=== PATIENT | female | born 1975 | race Caucasian/White ===

== ENCOUNTER 2017-08-25 09:48 | Inpatient (IN) | payer MEDICAID, OTHER ==
[~2017-08-25] VITALS: Ht 167.6 cm; Wt 78.3 kg
[2017-08-25] MEDS ORDERED: CefTRIAXone 2gm/NS 100ml IVPB 100 ML IV ONE (10:40)
[2017-08-25] MEDS ORDERED: normal saline 1000ML IV soln IV ONE (10:40)
[2017-08-25] MEDS ORDERED: clindamycin 600mg/D5W 50ml 50 ML IV ONE (11:20)
[2017-08-25 11:30] LABS: BASOPHILS % (AUTO) 0.3 % (0-1); EOSINOPHILS % (AUTO) 0 % (0-6); HEMATOCRIT 33.5 % (35.0-45.0); HEMOGLOBIN 11.8 g/dl (12.0-16.0); LYMPHOCYTES # (AUTO) 0.3 X10'3 (1.1-4.8); LYMPHOCYTES % (AUTO) 4.1 % (21-51); MEAN CORPUSCULAR HEMOGLOBIN 31.3 PG (27.0-31.0); MEAN CORPUSCULAR HGB CONC 35.3 % (33.0-36.5); MEAN CORPUSCULAR VOLUME 88.7 FL (78-98); MEAN PLATELET VOLUME 7.3 FL (7.4-10.4); MONOCYTES # (AUTO) 0.2 X10'3 (0-0.9); MONOCYTES % (AUTO) 3.4 % (2-12); NEUTROPHILS # (AUTO) 6.1 X10'3 (1.8-7.7); NEUTROPHILS % (AUTO) 92.2 % (42-75); PLATELET COUNT 196 X10'3 (140-440); RED BLOOD COUNT 3.77 X10'6 (4.20-5.60); RED CELL DISTRIBUTION WIDTH 14.4 % (11.5-14.5); WHITE BLOOD COUNT 6.6 X10'3 (4.5-11.0)
[2017-08-25 11:38] LABS: PARTIAL THROMBOPLASTIN TIME 26 SECONDS (22-32); PROTHROMBIN TIME 10.2 SECONDS (9.0-12.0)
[2017-08-25 11:42] LABS: ALANINE AMINOTRANSFERASE 33 U/L (12-78); ALBUMIN 3.1 G/DL (3.4-5.0); ALKALINE PHOSPHATASE 61 IU/L (46-116); ANION GAP 8 (8-16); ASPARTATE AMINO TRANSFERASE 24 U/L (10-37); BILIRUBIN,TOTAL 0.9 MG/DL (0.1-1.0); BLOOD UREA NITROGEN 8 MG/DL (7-18); BUN/CREATININE RATIO 11.9 (6.6-38.0); CALCIUM 7.6 MG/DL (8.5-10.1); CHLORIDE 105 MMOL/L (99-107); CREATININE 0.67 MG/DL (0.40-0.90); GLUCOSE 102 MG/DL (70-104); SODIUM 138 MMOL/L (135-145); TOTAL CARBON DIOXIDE 25.5 MMOL/L (24-32); TOTAL PROTEIN 6.1 G/DL (6.4-8.2); eGFR > 90 ML/MIN
[2017-08-25] MEDS ORDERED: acetaminophen 325mg tablet PO ONE (12:30)
[2017-08-25] MEDS ORDERED: morphine 4 MG/ML inj SYRINge IV ONE (12:30)
[2017-08-25] MEDS ORDERED: magnesium hydroxide 30ml (MOM) UD suspension PO PRN (13:10)
[2017-08-25] MEDS ORDERED: morphine 2 MG/ML inj. syringe IV PRN ×2 (13:10)
[2017-08-25] MEDS ORDERED: mag hydrox/Alum hydrox/simeth 30ml oral suspension PO PRN (13:10)
[2017-08-25] MEDS ORDERED: ondansetron/PF 4mg/2ml inj IV PRN (13:10)
[2017-08-25] MEDS ORDERED: acetaminophen 325mg tablet PO PRN (13:10)
[2017-08-25 13:44] LABS: CLARITY,URINE Clear (Clear); COLOR,URINE Yellow (Yellow); GLUCOSE, URINE Negative (Neg); KETONES,URINE Trace mg/dl (Neg); LEUKOCYTE ESTERASE ,URINE Negative (Neg); NITRITES, URINE Negative (Neg); OCCULT BLOOD,URINE Negative (Neg); PH,URINE 5.5 (4.8-8.0); PROTEIN,URINE Negative (Neg); UROBILINOGEN,URINE 0.2 E.U/dL (0.2-1.0)
[2017-08-25 13:52] LABS: UA COLLECTION TYPE CLN CATCH MIDSTREAM
[2017-08-25 13:57] LABS: URINE AMPHETAMINE SCREEN NEGATIVE (Neg); URINE BARBITUATE SCREEN NEGATIVE (Neg); URINE BENZODIAZEPINES SCREEN NEGATIVE (Neg); URINE CANNABINOID SCREEN NEGATIVE (Neg); URINE COCAINE SCREEN NEGATIVE (Neg); URINE METHADONE SCREEN NEGATIVE (Neg); URINE OPIATE SCREEN POSITIVE (Neg); URINE PHENCYCLIDINE SCREEN NEGATIVE (Neg)
[2017-08-25] MEDS: normal saline 1000ml 1,000 ML IV SCH ×2 (14:18→23:06)
[2017-08-25] MEDS: ampicill/sulbac 1.5gm/NS 100ml 100 ML IV SCH ×2 (14:18→20:47)
[2017-08-25] MEDS: HYDROcodone/acetaminophen 5mg/325mg tablet PO PRN ×2 (15:10→20:13)
[2017-08-25 15:22] LABS: HIV ANTIBODY 1&2 RAPID NON-REACTIVE (Neg)
[2017-08-25] MEDS ORDERED: NO HOME MEDS (16:42)
[2017-08-25] MEDS ORDERED: pneumococcal 23-VAL P-sac vacc 25 mcg/0.5ml vial IMVAC ONE (17:40)
[2017-08-25 19:00] VITALS: BP 111/59
[2017-08-25] MEDS ORDERED: morphine 4 MG/ML inj SYRINge IV PRN (21:25)
[2017-08-25] MEDS: morphine 4 MG/ML inj SYRINge IV PRN (21:53)
[2017-08-26] VITALS: BP 107/68
[2017-08-26] MEDS: ampicill/sulbac 1.5gm/NS 100ml 100 ML IV SCH ×2 (02:19→08:59)
[2017-08-26] MEDS: morphine 4 MG/ML inj SYRINge IV PRN ×4 (02:30→19:47)
[2017-08-26] MEDS: normal saline 1000ml 1,000 ML IV SCH ×2 (02:32→14:19)
[2017-08-26 05:55] LABS: BASOPHILS % (AUTO) 0.4 % (0-1); EOSINOPHILS % (AUTO) 0 % (0-6); HEMATOCRIT 34.1 % (35.0-45.0); HEMOGLOBIN 12.1 g/dl (12.0-16.0); LYMPHOCYTES # (AUTO) 0.5 X10'3 (1.1-4.8); LYMPHOCYTES % (AUTO) 8.8 % (21-51); MEAN CORPUSCULAR HEMOGLOBIN 31.9 PG (27.0-31.0); MEAN CORPUSCULAR HGB CONC 35.5 % (33.0-36.5); MEAN CORPUSCULAR VOLUME 89.8 FL (78-98); MEAN PLATELET VOLUME 7.6 FL (7.4-10.4); MONOCYTES # (AUTO) 0.3 X10'3 (0-0.9); MONOCYTES % (AUTO) 5.6 % (2-12); NEUTROPHILS # (AUTO) 4.7 X10'3 (1.8-7.7); NEUTROPHILS % (AUTO) 85.2 % (42-75); PLATELET COUNT 187 X10'3 (140-440); RED CELL DISTRIBUTION WIDTH 14.2 % (11.5-14.5); WHITE BLOOD COUNT 5.5 X10'3 (4.5-11.0)
[2017-08-26] MEDS: HYDROcodone/acetaminophen 5mg/325mg tablet PO PRN ×2 (06:02→16:51)
[2017-08-26 06:11] LABS: ANION GAP 8 (8-16); BLOOD UREA NITROGEN 4 MG/DL (7-18); BUN/CREATININE RATIO 5.7 (6.6-38.0); CALCIUM 8.2 MG/DL (8.5-10.1); CHLORIDE 105 MMOL/L (99-107); GLUCOSE 155 MG/DL (70-104); POTASSIUM 3.8 MMOL/L (3.5-5.1); SODIUM 139 MMOL/L (135-145); TOTAL CARBON DIOXIDE 25.9 MMOL/L (24-32); eGFR > 90 ML/MIN
[2017-08-26 07:00] VITALS: BP 113/62
[2017-08-26 11:00] VITALS: BP 122/69
[2017-08-26] MEDS: ampicillin/sulbac 3gm/NS 100ml 100 ML IV SCH ×2 (14:52→19:47)
[2017-08-26] MEDS: lactobacillus rhamnosus 10,000 MMU CELLS/CAPSULE PO SCH (16:51)
[2017-08-26 19:00] VITALS: BP 108/66
[2017-08-27] VITALS: BP 122/77
[2017-08-27] MEDS: morphine 4 MG/ML inj SYRINge IV PRN (00:15)
[2017-08-27] MEDS: HYDROcodone/acetaminophen 5mg/325mg tablet PO PRN ×3 (01:23→11:34)
[2017-08-27] MEDS: ampicillin/sulbac 3gm/NS 100ml 100 ML IV SCH ×2 (02:05→08:38)
[2017-08-27] MEDS: normal saline 1000ml 1,000 ML IV SCH (05:06)
[2017-08-27 05:53] LABS: BASOPHILS % (AUTO) 0.5 % (0-1); EOSINOPHILS # (AUTO) 0.1 X10'3 (0-0.9); EOSINOPHILS % (AUTO) 2.8 % (0-6); HEMATOCRIT 31.6 % (35.0-45.0); HEMOGLOBIN 11.2 g/dl (12.0-16.0); LYMPHOCYTES # (AUTO) 1.4 X10'3 (1.1-4.8); LYMPHOCYTES % (AUTO) 37.1 % (21-51); MEAN CORPUSCULAR HEMOGLOBIN 31.5 PG (27.0-31.0); MEAN CORPUSCULAR HGB CONC 35.4 % (33.0-36.5); MEAN CORPUSCULAR VOLUME 88.9 FL (78-98); MEAN PLATELET VOLUME 7.3 FL (7.4-10.4); MONOCYTES # (AUTO) 0.6 X10'3 (0-0.9); MONOCYTES % (AUTO) 15.6 % (2-12); NEUTROPHILS # (AUTO) 1.7 X10'3 (1.8-7.7); PLATELET COUNT 174 X10'3 (140-440); RED BLOOD COUNT 3.55 X10'6 (4.20-5.60); RED CELL DISTRIBUTION WIDTH 14.1 % (11.5-14.5); WHITE BLOOD COUNT 3.8 X10'3 (4.5-11.0)
[2017-08-27 06:13] LABS: ALBUMIN 2.7 G/DL (3.4-5.0); ANION GAP 9 (8-16); BLOOD UREA NITROGEN 6 MG/DL (7-18); BUN/CREATININE RATIO 10.7 (6.6-38.0); CALCIUM 8.3 MG/DL (8.5-10.1); CHLORIDE 108 MMOL/L (99-107); CREATININE 0.56 MG/DL (0.40-0.90); GLUCOSE 120 MG/DL (70-104); POTASSIUM 3.6 MMOL/L (3.5-5.1); SODIUM 143 MMOL/L (135-145); TOTAL CARBON DIOXIDE 26.4 MMOL/L (24-32); eGFR > 90 ML/MIN
[2017-08-27 06:54] VITALS: BP 120/71
[2017-08-27] MEDS: lactobacillus rhamnosus 10,000 MMU CELLS/CAPSULE PO SCH (08:38)
[2017-08-27] MEDS ORDERED: iohexol 300mg/ml 100ml inj. ONE (11:44)
[2017-08-27] MEDS ORDERED: ACET-2119 PO (13:31)
[2017-08-27] MEDS ORDERED: AMOX-580 PO (13:31)
[2017-08-27] MEDS ORDERED: NAPR-1166 PO (13:31)
== END 2017-08-27 14:30 | disposition home or self-care (01) | DRG 872 ==
LOC: ER 09:48 → ED HOLD 13:06 → MED 3N 18:30
PROVIDERS: ADMIT Family Medicine; ATTEND Family Medicine
PROC: BN251ZZ Computerized Tomography (CT Scan) of Facial Bones using Low Osmolar Contrast (ICD-10-PCS; principal; 2017-08-27)
DX: A41.9 Sepsis, unspecified organism (principal); K04.7 Periapical abscess without sinus
CPT/HCPCS: 36415; 70486; 70487; 80048; 80053; 80305; 81003; 83605; 84145; 85025; 85610; 85730; 86703; 87040; 87070; 87502; 87503; 90732; 93005; 93306; 96361; 96365; 96375; 99285; J0295; J0696; J2270; J2405; J3490; J7030; Q9967

== ENCOUNTER 2018-01-03 17:48 | Emergency (ER) | payer MEDICAID ==
[~2018-01-03] VITALS: Ht 167.6 cm; Wt 68.2 kg
[~2018-01-03 17:48] MED LIST: CLIN300C85 PO; NAPR-1166 PO
[2018-01-03] MEDS ORDERED: HYDROcodone/acetaminophen 10/325mg tab PO ONE (20:10)
[2018-01-03] MEDS ORDERED: iohexol 300mg/ml 100ml inj. ONE (20:43)
[2018-01-03 20:54] LABS: BASOPHILS % (AUTO) 0.4 % (0-1); EOSINOPHILS # (AUTO) 0.1 X10'3 (0-0.9); EOSINOPHILS % (AUTO) 0.6 % (0-6); HEMOGLOBIN 14.2 g/dl (12.0-16.0); LYMPHOCYTES # (AUTO) 1.5 X10'3 (1.1-4.8); LYMPHOCYTES % (AUTO) 18.7 % (21-51); MEAN CORPUSCULAR HEMOGLOBIN 30.8 PG (27.0-31.0); MEAN CORPUSCULAR HGB CONC 34.7 % (33.0-36.5); MEAN CORPUSCULAR VOLUME 88.8 FL (78-98); MEAN PLATELET VOLUME 7.9 FL (7.4-10.4); MONOCYTES # (AUTO) 0.7 X10'3 (0-0.9); MONOCYTES % (AUTO) 8.6 % (2-12); NEUTROPHILS # (AUTO) 5.8 X10'3 (1.8-7.7); NEUTROPHILS % (AUTO) 71.7 % (42-75); PLATELET COUNT 259 X10'3 (140-440); RED BLOOD COUNT 4.61 X10'6 (4.20-5.60); RED CELL DISTRIBUTION WIDTH 12.9 % (11.5-14.5); WHITE BLOOD COUNT 8.1 X10'3 (4.5-11.0)
[2018-01-03 21:07] LABS: ALANINE AMINOTRANSFERASE 18 U/L (12-78); ALBUMIN 3.7 G/DL (3.4-5.0); ALBUMIN/GLOBULIN RATIO 1.1 (1.1-1.5); ALKALINE PHOSPHATASE 60 IU/L (46-116); ANION GAP 6 (8-16); ASPARTATE AMINO TRANSFERASE 12 U/L (10-37); BILIRUBIN,TOTAL 1.4 MG/DL (0.1-1.0); BLOOD UREA NITROGEN 9 MG/DL (7-18); BUN/CREATININE RATIO 14.3 (6.6-38.0); CALCIUM 8.8 MG/DL (8.5-10.1); CHLORIDE 103 MMOL/L (99-107); CREATININE 0.63 MG/DL (0.40-0.90); GLUCOSE 101 MG/DL (70-104); POTASSIUM 3.5 MMOL/L (3.5-5.1); SODIUM 141 MMOL/L (135-145); TOTAL CARBON DIOXIDE 32.5 MMOL/L (24-32); TOTAL PROTEIN 7.2 G/DL (6.4-8.2); eGFR > 90 ML/MIN
[2018-01-03] MEDS ORDERED: HYDR-565 PO (23:22)
[2018-01-03 23:30] VITALS: BP 103/79
== END 2018-01-03 23:32 | disposition home or self-care (01) ==
LOC: ER 17:49
DX: K08.89 Other specified disorders of teeth and supporting structures (principal); Z79.899 Other long term (current) drug therapy
CPT/HCPCS: 36415; 70487; 80053; 85025; 99285; J7030; Q9967

== ENCOUNTER 2021-04-27 18:36 | Inpatient (IN) | payer MEDICAID ==
[~2021-04-27] VITALS: Ht 170.2 cm; Wt 59.8 kg
[~2021-04-27 18:36] MED LIST changes: +CLIN-97 PO; -CLIN300C85 PO
[2021-04-27 19:25] LABS: URINE HCG NEGATIVE (NEG)
[2021-04-27 19:30] LABS: URINE AMPHETAMINE SCREEN NEGATIVE (Neg); URINE BARBITUATE SCREEN NEGATIVE (Neg); URINE BENZODIAZEPINES SCREEN NEGATIVE (Neg); URINE CANNABINOID SCREEN NEGATIVE (Neg); URINE COCAINE SCREEN NEGATIVE (Neg); URINE METHADONE SCREEN POSITIVE (Neg); URINE OPIATE SCREEN NEGATIVE (Neg); URINE PHENCYCLIDINE SCREEN NEGATIVE (Neg)
[2021-04-27 19:40] LABS: BASOPHILS % (AUTO) 0.3 % (0-1); EOSINOPHILS % (AUTO) 0.1 % (0-6); HEMATOCRIT 38.2 % (35.0-45.0); HEMOGLOBIN 13.7 g/dl (12.0-16.0); LYMPHOCYTES # (AUTO) 1.5 X10'3 (1.1-4.8); LYMPHOCYTES % (AUTO) 21.6 % (21-51); MEAN CORPUSCULAR HEMOGLOBIN 31.4 PG (27.0-31.0); MEAN CORPUSCULAR HGB CONC 35.8 g/dL (33.0-36.5); MEAN CORPUSCULAR VOLUME 87.8 FL (78-98); MEAN PLATELET VOLUME 7.5 FL (7.4-10.4); MONOCYTES # (AUTO) 0.8 X10'3 (0-0.9); MONOCYTES % (AUTO) 10.9 % (2-12); NEUTROPHILS # (AUTO) 4.7 X10'3 (1.8-7.7); NEUTROPHILS % (AUTO) 67.1 % (42-75); PLATELET COUNT 344 X10'3 (140-440); RED BLOOD COUNT 4.36 X10'6 (4.20-5.60); RED CELL DISTRIBUTION WIDTH 12.5 % (11.5-14.5)
[2021-04-27 19:52] LABS: ALANINE AMINOTRANSFERASE 29 U/L (12-78); ALBUMIN 4.2 G/DL (3.4-5.0); ALBUMIN/GLOBULIN RATIO 1.2 (1.1-1.5); ALKALINE PHOSPHATASE 47 IU/L (46-116); ANION GAP 11 (8-16); ASPARTATE AMINO TRANSFERASE 25 U/L (10-37); BILIRUBIN,TOTAL 1.6 MG/DL (0.1-1.0); BLOOD UREA NITROGEN 5 MG/DL (7-18); CHLORIDE 99 MMOL/L (99-107); CREATININE 0.71 MG/DL (0.40-0.90); GLUCOSE 108 MG/DL (70-104); POTASSIUM 3.2 MMOL/L (3.5-5.1); SODIUM 140 MMOL/L (135-145); TOTAL CARBON DIOXIDE 29.8 MMOL/L (24-32); TOTAL PROTEIN 7.8 G/DL (6.4-8.2); eGFR 89 ML/MIN
[2021-04-27 20:01] LABS: ETHANOL < 0.010 GM/DL (0.0-0.010)
[2021-04-27] MEDS ORDERED: normal saline 1000ML IV soln IVB ONE (20:05)
--- NOTE | 2021-04-27 20:51 | NUR ---
pt refused IV and IVF. md monzon notified
[2021-04-27] MEDS ORDERED: BUPR1FIL3 (22:19)
--- NOTE | 2021-04-27 23:35 | NUR ---
The patient moved to bed 20 in the ER overflow.
--- NOTE | 2021-04-27 23:36 | NUR ---
PACKET SENT TO [facility]
[2021-04-27] MEDS ORDERED: METH-603 PO (23:42)
--- NOTE | 2021-04-28 01:33 | NUR ---
The patient is awake and resting on her bed
[2021-04-28] MEDS ORDERED: OLANZapine 5mg rapidly disint. tablet PO ONE (01:55)
--- NOTE | 2021-04-28 02:01 | NUR ---
The patient up and wandering around looking behind curtains. Appears watchful and afraid. She agreed to accept medication. Dr. Ugalde aware and orders received.
--- NOTE | 2021-04-28 03:13 | NUR ---
The patient up briefly to use the bathroom
--- NOTE | 2021-04-28 04:42 | NUR ---
The patient appears to be sleeping
[2021-04-28] MEDS ORDERED: LORazepam 2 mg/ml vial IM STA (04:49)
[2021-04-28] MEDS ORDERED: haloperidol lactate 5mg/ml inj IM STA (04:49)
[2021-04-28] MEDS ORDERED: diphenhydrAMINE 50 mg/ml inj IM STA (04:49)
--- NOTE | 2021-04-28 05:05 | NUR ---
The patient suddenly up out of bed and very frightened. She was disorganized and started running to the exits and obviously responding to internal stimuli and paranoid. She began to throw 100$ bills about the unit.
--- NOTE | 2021-04-28 06:30 | NUR ---
Patient laying supine and snoring. No distress observed. Continue to monitor.
--- NOTE | 2021-04-28 08:20 | NUR ---
Breakfast tray at bedside. Patient continues to sleep. No distress observed. Continue to monitor.
--- NOTE | 2021-04-28 08:58 | NUR ---
PT'S SISTER LAWRENCE CALLED TO CHECK ON PT, HER PHONE NUMBER IS [phone]
--- NOTE | 2021-04-28 09:16 | NUR ---
PT'S MAREN CALLED TO CHECK ON PT. HIS NAME IS ANDRWE CASTANEDA, HIS PHONE NUMBER IS [phone]
[2021-04-28 09:54] LABS: CLARITY,URINE SLIGHTLY CLOUDY (Clear); COLOR,URINE COLORLESS (Yellow); UA COLLECTION TYPE CLN CATCH MIDSTREAM
[2021-04-28 09:55] LABS: GLUCOSE, URINE NEGATIVE (Neg); KETONES,URINE 15 mg/dl (Neg); LEUKOCYTE ESTERASE ,URINE NEGATIVE (Neg); NITRITES, URINE NEGATIVE (Neg); OCCULT BLOOD,URINE SMALL (Neg); PROTEIN,URINE NEGATIVE (Neg); UROBILINOGEN,URINE 0.2 E.U/dL (0.2-1.0)
[2021-04-28 10:18] LABS: SQUAMOUS EPITHELIAL CELL,UR FEW /LPF (FEW)
[2021-04-28 10:19] LABS: BACTERIA,URINE FEW /HPF (Neg); RBC,URINE 0-2 /HPF (0-2); WBC,URINE 0-4 /HPF (0-4)
--- NOTE | 2021-04-28 11:26 | NUR ---
Note aleksandraone in EDM - 04/28/21 at 1128 by ORION Patient should be going home around noon. Eliel [facility], is not placing patient on a 5150. Patient is aware. Patient in reclining in bed. No distress observed. Continue to monitor.
--- NOTE | 2021-04-28 11:39 | NUR ---
Patient continues to sleep. Patient's methadone was due at 0800. Patient still sedated from B52 given around 0500 this morning. Continue to monitor.
[2021-04-28] MEDS: methadone 10mg tablet PO SCH (11:54)
--- NOTE | 2021-04-28 11:58 | NUR ---
Patient awoke and RN gave patient her Methadone. Patient took the medication slowly because she says it is usually liquid. RN asked patient if she new where she was was. Patient stated "[place]." Then patient asked RN "Are we on a boat?". RN explained that she was in the hospital at [facility]. Patient does not appear to remember any thing current. Patient then rolled over and went back to sleep. Continue to monitor.
--- NOTE | 2021-04-28 13:11 | NUR ---
Patient's lunch tray at side. Patient continues to sleep. No distress observed. Continue to monitor.
--- NOTE | 2021-04-28 13:47 | NUR ---
FRANCIS, Eliel, attempting to awaken patient. Patient awoke for a moment and then closed her eyes to go back asleep. [facility] unable to assess patient at this time. Continue to monitor.
--- NOTE | 2021-04-28 15:13 | NUR ---
RN awoke patient to give her water and asked patient if she needed to use the BR. RN gave patient her pitcher and she drank some water. Patient got up and walked to the BR after placing her socks on her feet. Continue to monitor.
--- NOTE | 2021-04-28 16:48 | NUR ---
Eliel BLANCO, speaking to patient. Patient is sitting up and talking and drinking her water. Continue to monitor.
--- NOTE | 2021-04-28 18:44 | NUR ---
The patient is up at the station and socializing with staff and peers. She is less hypervigilant. Currently is not requiring any redirection from staff.
--- NOTE | 2021-04-28 20:07 | NUR ---
Nurse to nurse with [facility] RN. The patient is resting on her bed. Discussed patient with JARROD Tate and HS medications ordered for tonight.
[2021-04-28] MEDS ORDERED: olanzapine 10mg tablet PO ONE (21:00)
--- NOTE | 2021-04-28 21:34 | NUR ---
The patient awakened and is more disorganized but reassured and she is now laying back on her bed.
--- NOTE | 2021-04-28 22:53 | NUR ---
The patient has been accepted at [facility] for an AM transfer
--- NOTE | 2021-04-29 01:39 | NUR ---
The patient appears to be sleeping
--- NOTE | 2021-04-29 03:48 | NUR ---
The patient appears to be sleeping
--- NOTE | 2021-04-29 04:49 | NUR ---
The patient appears to be sleeping
--- NOTE | 2021-04-29 06:22 | NUR ---
The patient appears to be sleeping
[2021-04-29] MEDS: methadone 10mg tablet PO SCH (08:00)
--- NOTE | 2021-04-29 08:11 | NUR ---
The patient is sitting up and eating her dinner
[2021-04-29] MEDS ORDERED: magnesium hydroxide 30ml (MOM) UD suspension PO PRN (09:25)
[2021-04-29] MEDS ORDERED: traZODone 50mg tablet PO PRN (09:25)
[2021-04-29] MEDS ORDERED: NICOTINE POLACRILEX 2 MG LOZENGE BC PRN (09:25)
[2021-04-29] MEDS ORDERED: mag hydrox/Alum hydrox/simeth 30ml oral suspension PO PRN (09:25)
[2021-04-29] MEDS ORDERED: loperamide 2mg capsule PO PRN (09:25)
[2021-04-29] MEDS ORDERED: acetaminophen 325mg tablet PO PRN (09:25)
[2021-04-29 09:47] VITALS: BP 130/79
--- NOTE | 2021-04-29 10:58 | NUR ---
Admission note: Pt admitted today on a 5150 for Gravely disabled at 0911 from our ER escorted by security. Pt exhibits paranoia, delusional thoughts, fear of people harming her and her family, not sleeping the past 48 hours per family. Pt has history of substance abuse and on Methadone. Pt fully covid vaccinated. Pt cooperative with admission process.
[2021-04-29 19:09] VITALS: BP 125/71
[2021-04-29] MEDS: acetaminophen 325mg tablet PO PRN (19:26)
[2021-04-29] MEDS: LORazepam 1 MG tablet PO PRN (20:39)
[2021-04-29] MEDS: olanzapine 10mg tablet PO PRN (22:41)
--- NOTE | 2021-04-30 03:46 | NUR ---
Nursing Progress Note: Legal hold: 5150 Client on involuntary status for GD. Report received from FELICIA Blancas with use of SBAR. Pt admitted today on a 5150 for gravely disabled at 0911 from our ER escorted by security. Pt exhibits paranoia, delusional thoughts, and fear of people harming her and her family, not sleeping the past 48 hours per family. Pt has history of substance abuse and on Methadone. Pt fully covid vaccinated. Pt cooperative with admission process. Assessment What has happened this shift: Patient was found in room reading a book. Patient then came out of room franticly telling nurse she needs to get out of here. Patient does not understand why she is in here. Patient keeps stating she is not crazy and doesnt need to be here. She needs to get out of here its her daughters birthday tomorrow and she still needs to get her a gift. Nurse calms down patient and redirects her to her room. Patient started complaining of shoulder pain and was given PRN Tylenol. Patient spends some time in sitting room with other patients watching tv before returning back to bed. Patient gets up frustrated and complaining of inability to sleep patient is give PRN Zyprexa. Patient finally sleeps. S/I, H/I: Pt denies A/VH: Pt denies Sleep: see sleep hours ADL's: Independent Group attendance: yes Were meds taken: Yes Any med S/E: None noted or reported. Mental Status Exam Appearance: Slim, middle aged women wearing personal clothing Eye contact: Good. Behavior: Restless, impulsive, anxious, somewhat demanding and intrusive at times, paces the unit Speech: Clear, audible, somewhat rapid. Mood: Anxious Affect: Euthymic Thought process: obsessive Thought Content: Patient has to buy a birthday gift for daughter and has to get out. Cognition: A/O X 3 Insight: Poor Judgment: Poor Interventions PRN's used: Tylenol , Zyprexa Therapeutic interventions: 1:1 assessment, therapeutic communication, active listening, ensured contract for safety, provided clear and simple instructions, monitored behaviors and maintained clear boundaries; limit setting, redirection, distraction, reality orientation, and positive reinforcement, medication education/administration/monitoring, and maintained Q 15 minute safety checks. Restraints/seclusion/emergency medication: N/A Justification of Continued Inpatient Treatment: Patient continues to require a safe and therapeutic environment, medication adjustment/monitoring, and crisis intervention. Pt is being assisted with [employer] application.
[2021-04-30 07:38] VITALS: BP 120/57
[2021-04-30] MEDS: methadone 10mg tablet PO SCH (07:48)
[2021-04-30 09:41] LABS: CHOL/HDL RATIO 2.9 (0.00-4.99); CHOLESTEROL 180 MG/DL (0-200); HDL CHOLESTEROL 63 MG/DL (35-60); LDL CHOLESTEROL 94 MG/DL (50-100); TRIGLYCERIDES 57 MG/DL (20-135)
[2021-04-30 09:46] LABS: HEMOGLOBIN A1C 5.7 % (4.5-6.2)
--- NOTE | 2021-04-30 10:06 | NUR ---
Pt. attended group today. We talked about how to recognize when you are in a Co-dependent relationship. The Pts. did a Checklist about what symptoms of codependency they may have. We discussed seven ways to avoid codependency. This was Pts. first time in group as she just got to [facility]. Pt. engaged in the group well, she appeared tired as she would almost be falling asleep while listening to this Abattoir Supervisor or her peers. She engaged in the group well when asked to share. Her responses were appropriate and she was able engage with the informations well. Her thought process and thought content appeared WNL. She was friendly and open to this Abattoir Supervisor and her peers. Her demeanor was calm and pleasant to work with. She was able to identify the areas she needs to work on toward attaining healthier relationships. Ioana Liz, ABDIFATAH
--- NOTE | 2021-04-30 14:19 | NUR ---
We talked about Boundaries, the different kinds and how to communicate our boundaries to others. Each pt. did a written activity to help them identify a person/situation they struggle to set boundaries in. Pt. participated in the group today though she tends to zone out and look like she is falling asleep at times. She did the written activity but decline sharing in the group. Her thought content and thought process was WNL. Ioana Liz LCSW
[2021-04-30] MEDS ORDERED: potassium Cl 20 mEq SR tablet PO STA (14:25)
[2021-04-30 16:05] LABS: POTASSIUM 3.8 MMOL/L (3.5-5.1)
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
[2021-04-30 19:16] VITALS: BP 119/82
[2021-04-30] MEDS: LORazepam 1 MG tablet PO PRN (19:34)
--- NOTE | 2021-05-01 02:44 | NUR ---
Nursing Progress Note: Legal hold: 5150 Client on involuntary status for GD. Report received from FELICIA Blancas with use of SBAR. Pt admitted 04/29/21 from ER overflow on a 5150 for GD. Pt's boyfriend reported that pt had been acting strangely with paranoia, delusional thoughts, and fear of people harming her and her family, as well as not sleeping the past 48 hours per family. Pt has history of substance abuse and on Methadone. Pt cooperative with admission process. Assessment What has happened this shift: Patient appeared anxious and preoccupied with internal stimulant. Patient continues to ask when is she going home and that she does not need to be here. Patient was reassured by nurses multiple time that when it time for her to leave all of her belongings will be returned to her. Patient became argumentative with nurse about her money in the safe. Patient didn't believe nurse when she told her we did not have it here and that it is being kept locked up. Patient was given PRN Ativan. Patient spent some time in the community room playing cards and socializing with other patients. Patient returned to her room and fell asleep. Patient awoken an hour later and began going back and forth from her bed to wondering around the hallways. Patient also kept swaying back and forth in front of the charting room and when asked if she needed anything kept stating "no". Patient eventually returned to her room and went to sleep. S/I, H/I: Pt denies A/VH: Pt denies Sleep: See sleep assessment ADL's: Independent Group attendance: yes Were meds taken: Yes Any med S/E: none Mental Status Exam Appearance: Slim, middle aged women wearing personal clothing Eye contact: Good. Behavior: Pleasant, cooperative, may be minimizing symptoms. Speech: Clear, audible, repetitive. Mood: Anxious Affect: Full range. Thought process: Perseverative, has difficulty understanding mental health hold despite being educated repeatedly. Thought Content: She does not need to be here, she is worried about her kids, there is no such thing as an involuntary psych hold in [facility]. Cognition: A/O X 3, disoriented to situation/reality distortion, possible cognitive impairment, pt has difficulty processing and accepting information. Insight: Poor Judgment: Poor Interventions PRN's used: None Therapeutic interventions: 1:1 assessment, therapeutic communication, active listening, ensured contract for safety, medication education/administration/monitoring, provided clear and simple instructions, encouragement to attend groups, mental health hold education, behavior monitoring and intervention as needed; distraction, redirection, reality orientation, and positive reinforcement, , and maintained Q 15 minute safety checks. Restraints/seclusion/emergency medication: N/A Justification of Continued Inpatient Treatment: Patient continues to require a safe and therapeutic environment, medication adjustment/monitoring, and crisis intervention.
[2021-05-01] MEDS: olanzapine 10mg tablet PO PRN (04:17)
[2021-05-01 08:00] VITALS: BP 124/62
[2021-05-01] MEDS: methadone 10mg tablet PO SCH (09:02)
--- NOTE | 2021-05-01 16:39 | NUR ---
Anyn note: Anny called and states pt calls and does not remember with in 10 minutes. Sometimes she calls and threatens them and then forgets . Anny feels pt may have split personality.
--- NOTE | 2021-05-01 17:28 | NUR ---
Nursing Progress Note Legal hold: 5150 Client on involuntary status for GD. Report received from FELICIA Leija with use of SBAR. Why are they here: Pt admitted 04/29/21 from ER overflow on a 5150 for GD. Pt's boyfriend reported that pt had been acting strangely with paranoia, delusional thoughts, and fear of people harming her and her family, as well as not sleeping the past 48 hours per family. Pt has history of substance abuse and on Methadone. Pt cooperative with admission process. Assessment What has happened this shift: Pt observed on the floor pacing at the start of the shift. Pt was somewhat hesitant to take her medicine, Methadone 85mg; provided education and pt agreed to take it. Pt was hesitant due to at home she takes the pink liquid, this seems to be more. Pt perseverates on discharge. She asked this nurse all morning and into the early part of the afternoon, when can I go home. This nurse unable to redirect her. S/I, H/I: Pt denies A/VH: Pt denies Sleep: Pt up all shift ADL's: Independent Group attendance: yes Were meds taken: Yes Any med S/E: None noted or reported Mental Status Exam Appearance: Slim, middle aged women wearing personal clothing Eye contact: Good. Behavior: Perseverated; difficult redirecting her Speech: Clear, audible, repetitive. Mood: Anxious Affect: Full range. Thought process: Perseverative, has difficulty understanding current hold Thought Content: I just want to go home and see my kids. Cognition: A/O X 3 Insight: Poor Judgment: Poor Interventions PRN's used: None Therapeutic interventions: Provided 1:1 assessment with therapeutic communication and active listening, medication education/administration/monitoring, encouragement to attend groups, behavior monitoring and intervention as needed, and maintained Q 15 minute safety checks. Restraints/seclusion/emergency medication: N/A Justification of Continued Inpatient Treatment: Patient continues to require a safe and therapeutic environment, medication adjustment/monitoring, and crisis intervention.
[2021-05-01] MEDS: acetaminophen 325mg tablet PO PRN (18:39)
[2021-05-01 19:42] VITALS: BP 120/73
--- NOTE | 2021-05-02 02:45 | NUR ---
Nursing Progress Note: Legal hold: 5150 Client on involuntary status for GD. Report received from FELICIA Blancas with use of SBAR. Pt admitted 04/29/21 from ER overflow on a 5150 for GD. Pt's boyfriend reported that pt had been acting strangely with paranoia, delusional thoughts, and fear of people harming her and her family, as well as not sleeping the past 48 hours per family. Pt has history of substance abuse and on Methadone. Pt cooperative with admission process. Assessment What has happened this shift: patient spent most of the shift socializing with other patients and wondering around unit. Patient participated in snack time and then returned to room to read. Patient stated to nurse she was feeling anxious and wanted something to help her sleep. Patient was given PRN Zyprexa. Patient slept with no issues. S/I, H/I: Pt denies A/VH: Pt denies Sleep: See sleep assessment ADL's: Independent Group attendance: yes Were meds taken: Yes Any med S/E: none Mental Status Exam Appearance: Slim, middle aged women wearing personal clothing Eye contact: Good. Behavior: Pleasant, cooperative, may be minimizing symptoms. Speech: Clear, audible, repetitive. Mood: Anxious Affect: Full range. Thought process: Perseverative, has difficulty understanding mental health hold despite being educated repeatedly. Thought Content: She does not need to be here, she is worried about her kids, there is no such thing as an involuntary psych hold in [facility]. Cognition: A/O X 3, disoriented to situation/reality distortion, possible cognitive impairment, pt has difficulty processing and accepting information. Insight: Poor Judgment: Poor Interventions PRN's used: None Therapeutic interventions: 1:1 assessment, therapeutic communication, active listening, ensured contract for safety, medication education/administration/monitoring, provided clear and simple instructions, encouragement to attend groups, mental health hold education, behavior monitoring and intervention as needed; distraction, redirection, reality orientation, and positive reinforcement, , and maintained Q 15 minute safety checks. Restraints/seclusion/emergency medication: N/A Justification of Continued Inpatient Treatment: Patient continues to require a safe and therapeutic environment, medication adjustment/monitoring, and crisis intervention.
[2021-05-02 08:39] VITALS: BP 125/84
[2021-05-02] MEDS: methadone 10mg tablet PO SCH (08:48)
[2021-05-02] MEDS ORDERED: NICO-907 BC (11:02)
[2021-05-02] MEDS ORDERED: OLAN10TA73 PO (11:02)
--- NOTE | 2021-05-02 11:35 | NUR ---
DISCHARGE NOTE Pt discharged home with her children and . picked her up. Pt personal belongings inventoried and signed out by GHAZALA Becker. Pt left with a smile on her face. She agreed to take her mediaions as prescribed and to pick them up from her pharmacy on the way home. She prescribed nicotine lozenges and agreed to take them at home. During discharge pt did talk about vaping and did not want education to quit smoking or resources to help her when and if she decided to quit.
== END 2021-05-02 11:35 | disposition home or self-care (01) | DRG 756 ==
LOC: ER 18:37 → UNDOADMIN 04-28 22:40 → ADULT MH 04-28 22:40 → ED HOLD 04-28 22:40 → ADULT MH 04-29 09:25
PROVIDERS: ADMIT Psychiatry & Neurology Psychiatry; ATTEND Psychiatry & Neurology Psychiatry
DX: F99 Mental disorder, not otherwise specified (principal); F22 Delusional disorders; Z20.822 Contact with and (suspected) exposure to COVID-19; F31.9 Bipolar disorder, unspecified; J45.909 Unspecified asthma, uncomplicated; F17.210 Nicotine dependence, cigarettes, uncomplicated; G47.00 Insomnia, unspecified; F11.20 Opioid dependence, uncomplicated; F19.159 Other psychoactive substance abuse with psychoactive substance-induced psychotic disorder, unspecified; E11.9 Type 2 diabetes mellitus without complications; I10 Essential (primary) hypertension; Z98.891 History of uterine scar from previous surgery; Z79.2 Long term (current) use of antibiotics; Z79.899 Other long term (current) drug therapy; Z56.0 Unemployment, unspecified; Z71.89 Other specified counseling
CPT/HCPCS: 36415; 80053; 80061; 80305; 80320; 81001; 81025; 83036; 84132; 84443; 85025; 87081; 87635; 96372; 99285; C9803; G0378; J1200; J1630; J2060

== ENCOUNTER 2021-06-05 15:12 | Emergency (ER) | payer MEDICAID ==
[~2021-06-05] VITALS: Ht 167.6 cm; Wt 68.0 kg
[~2021-06-05 15:12] MED LIST changes: -CLIN-97 PO; +METH-603 PO; -NAPR-1166 PO; +NICO-907 BC; +OLAN10TA73 PO
[2021-06-05 16:07] LABS: HEMATOCRIT 37.5 % (35.0-45.0); MEAN PLATELET VOLUME 7.4 FL (7.4-10.4); WHITE BLOOD COUNT 7.6 X10'3 (4.5-11.0)
[2021-06-05 16:08] LABS: BASOPHILS % (AUTO) 0.4 % (0-1); EOSINOPHILS % (AUTO) 0.1 % (0-6); HEMOGLOBIN 13.3 g/dl (12.0-16.0); LYMPHOCYTES # (AUTO) 1.2 X10'3 (1.1-4.8); LYMPHOCYTES % (AUTO) 16.2 % (21-51); MEAN CORPUSCULAR HEMOGLOBIN 31.3 PG (27.0-31.0); MEAN CORPUSCULAR HGB CONC 35.5 g/dL (33.0-36.5); MEAN CORPUSCULAR VOLUME 88.1 FL (78-98); MONOCYTES # (AUTO) 0.8 X10'3 (0-0.9); MONOCYTES % (AUTO) 10.5 % (2-12); NEUTROPHILS # (AUTO) 5.5 X10'3 (1.8-7.7); NEUTROPHILS % (AUTO) 72.8 % (42-75); PLATELET COUNT 349 X10'3 (140-440); RED BLOOD COUNT 4.25 X10'6 (4.20-5.60); RED CELL DISTRIBUTION WIDTH 12.4 % (11.5-14.5)
[2021-06-05 16:18] LABS: ALANINE AMINOTRANSFERASE 37 U/L (12-78); ALBUMIN 4.3 G/DL (3.4-5.0); ALBUMIN/GLOBULIN RATIO 1.2 (1.1-1.5); ALKALINE PHOSPHATASE 50 IU/L (46-116); ANION GAP 11 (8-16); ASPARTATE AMINO TRANSFERASE 28 U/L (10-37); BILIRUBIN,TOTAL 1.3 MG/DL (0.1-1.0); BLOOD UREA NITROGEN 19 MG/DL (7-18); CALCIUM 8.9 MG/DL (8.5-10.1); CHLORIDE 100 MMOL/L (99-107); CREATININE 0.76 MG/DL (0.40-0.90); GLUCOSE 104 MG/DL (70-104); POTASSIUM 3.5 MMOL/L (3.5-5.1); SODIUM 139 MMOL/L (135-145); TOTAL CARBON DIOXIDE 28.4 MMOL/L (24-32); TOTAL PROTEIN 7.9 G/DL (6.4-8.2); eGFR 82 ML/MIN
[2021-06-05 16:33] LABS: ETHANOL < 0.010 GM/DL (0.0-0.010)
[2021-06-05] MEDS ORDERED: OLANZapine 5mg rapidly disint. tablet PO ONE (16:35)
--- NOTE | 2021-06-05 17:00 | NUR ---
Patient is having difficulty following commands. Patient appears to be responding to internal stimuli AEB patient scared and looking at the curtain yelling "No! No!". RN assisted patient in getting undressed and cleaned patient's perineal due to obvious stool. Patient wrapped shoulders in a warm blanket and patient got in bed. No distress observed at this time. Continue to monitor.
--- NOTE | 2021-06-05 17:10 | NUR ---
RN spoke with patient's "" (Fazal Mascorro, [phone]) who states patient started acting strange and they have children so he had to call the Door Technician's office to pick her up. States she has had 2 of these episodes. RN explained she is not sure what is going on with her and it is possibly a bad batch of drugs or possibly schizophrenia. RN explained sometimes we don't know what comes first the drugs or the schizophrenia. Patient states she is always sleepy when she does heroin and doesn't act like . He states she has been doing drugs since she was 15. Patient was acting manic and psychotic. verbalized understanding. All questions were answered.
[2021-06-05] MEDS ORDERED: methadone 10mg tablet PO ONE (17:20)
--- NOTE | 2021-06-05 17:55 | NUR ---
Patient sitting up awake. RN went to give patient her 8.5 tabs of Methadone and 5 mg Zyprexa. RN put 2 pills in patient's mouth and she didn't know what to do with it. RN gave her water and put the straw in her mouth and patient wouldn't put her lips around it to suck. RN took away the stray and gave patient a sip. Patient then appeared to understand. RN put the straw back in and patient took a couple pills at a time and drank the water. RN asked patient to open her mouth with each pass and patient did. Patient swallowed all the pill and zyprexa disolved in her mouth as it took her a while to understand. RN gave patient her first dose of methadone because she was in snf and had not had it for 3 days. Will start daily tomorrow. Continue to monitor.
[2021-06-05] MEDS ORDERED: LORazepam 2 mg/ml vial IM ONE ×2 (18:40→19:20)
[2021-06-05] MEDS ORDERED: diphenhydrAMINE 50 mg/ml inj IM ONE (18:40)
[2021-06-05] MEDS ORDERED: haloperidol lactate 5mg/ml inj IM ONE ×4 (18:40→20:00)
--- NOTE | 2021-06-05 18:40 | NUR ---
Patient has awoken from a short nap of approximately one hour per day RN. Patient is now screaming, she presents as very psychotic. Patient flails arms and also has voided in bed and defecated too. PA is consulted. Orders received for Ativan, Benadryl, and Haldol IM.
--- NOTE | 2021-06-05 19:12 | NUR ---
Patient has been given ativan 1mg, Benadryl 50 mg, and Haldol 5 mg IM. She remains irrational and uncooperative.
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
[2021-06-05] MEDS: OLANZapine 5mg rapidly disint. tablet PO SCH (20:00)
[2021-06-05] MEDS ORDERED: olanzapine 10mg tablet PO SCH (20:00)
--- NOTE | 2021-06-05 20:00 | NUR ---
pt asking for water, she drank 8 oz of water, no n/v
--- NOTE | 2021-06-05 20:06 | NUR ---
Patient is calming to some degree. She has been cleaned, a quick cath was done by female RN, an adult diaper was placed, cleen scrubs applied.
[2021-06-05 20:28] LABS: URINE HCG NEGATIVE (NEG)
[2021-06-05 20:30] LABS: CLARITY,URINE CLEAR (Clear); COLOR,URINE YELLOW (Yellow); GLUCOSE, URINE NEGATIVE (Neg); KETONES,URINE >=80 mg/dl (Neg); LEUKOCYTE ESTERASE ,URINE NEGATIVE (Neg); NITRITES, URINE NEGATIVE (Neg); OCCULT BLOOD,URINE TRACE-INTACT (Neg); PROTEIN,URINE 30 mg/dl (Neg); UROBILINOGEN,URINE 0.2 E.U/dL (0.2-1.0)
[2021-06-05 20:34] LABS: URINE AMPHETAMINE SCREEN NEGATIVE (Neg); URINE BARBITUATE SCREEN NEGATIVE (Neg); URINE BENZODIAZEPINES SCREEN NEGATIVE (Neg); URINE CANNABINOID SCREEN NEGATIVE (Neg); URINE COCAINE SCREEN NEGATIVE (Neg); URINE METHADONE SCREEN POSITIVE (Neg); URINE OPIATE SCREEN NEGATIVE (Neg); URINE PHENCYCLIDINE SCREEN NEGATIVE (Neg)
--- NOTE | 2021-06-05 20:37 | NUR ---
relieving RN for break, pt is sleeping quietly, light snoring respirations, pt is on continuous pulse ox and BP monitor
[2021-06-05 20:39] LABS: UA COLLECTION TYPE CLN CATCH MIDSTREAM
[2021-06-05 20:40] LABS: BACTERIA,URINE FEW /HPF (Neg); RBC,URINE 0-2 /HPF (0-2); SQUAMOUS EPITHELIAL CELL,UR FEW /LPF (FEW); WBC,URINE 0-4 /HPF (0-4)
--- NOTE | 2021-06-05 21:05 | NUR ---
Patient sleeping quietly, SP02 is 98%. 84 pulse. A MgS04 level is ordered. QT is borderling per PA.
--- NOTE | 2021-06-05 21:08 | NUR ---
Lead 2 shows NSR without ectopy, patient is sleeping quietly, in direct view from nurses station.
[2021-06-05 21:47] LABS: MAGNESIUM 2.8 MG/DL (1.5-2.4)
--- NOTE | 2021-06-05 23:10 | NUR ---
Patient is sleeping supine in bed. Good color. SpO2 is 100 percent on room air. NSR at 71, no ectopy. Resp 12. In direct view from the nurses station.
--- NOTE | 2021-06-06 02:13 | NUR ---
Patient is sleeping quietly in a supine position. SP02 is 100 percent. NSR without ectopy, Resp 12. B/P 113/74
--- NOTE | 2021-06-06 04:04 | NUR ---
Patient raised to low fowlers position in bed. Additional blanket added. Patient starts to awaken but returns to sleep. B/P 115/73, Pulse is 76 and NSR without ectopy, resp 11. No distress noted.
[2021-06-06] MEDS ORDERED: magnesium oxide 400mg tablet PO ONE (06:00)
--- NOTE | 2021-06-06 06:02 | NUR ---
This automobile service writer discussed patients WA of 534 and the potential for additional antipsychotics if patient awakes combative? Per Dr. Amador give mag oxide when awake to help stabelize QT. This will be passed on to day shift RN.
--- NOTE | 2021-06-06 06:45 | NUR ---
Patient awoke, tachycardia started without any exertion to a rate circa 145, no ectopy. Dr. Allen consulted.
[2021-06-06] MEDS ORDERED: LORazepam 2 mg/ml vial IM ONE (06:50)
[2021-06-06] MEDS ORDERED: normal saline 1000ML IV soln IVB ONE (06:50)
[2021-06-06] MEDS ORDERED: LORazepam 2 mg/ml vial IV ONE ×2 (06:55→07:35)
[2021-06-06] MEDS ORDERED: diphenhydrAMINE 50 mg/ml inj IV ONE (07:35)
[2021-06-06] MEDS ORDERED: magnesium 2GM in 50ml NS 50 ML IV ONE (07:40)
[2021-06-06] MEDS ORDERED: methadone 10mg tablet PO SCH (08:00)
[2021-06-06] MEDS: OLANZapine 5mg rapidly disint. tablet PO SCH ×2 (08:00→19:20)
[2021-06-06] MEDS: methadone 10mg tablet PO SCH (08:26)
--- NOTE | 2021-06-06 08:30 | NUR ---
Montrell Mccall, Psych PA was consulted by this tech writer at the request of Dr. Ugalde. Montrell was advised about patient being combative this am upon awakening, her prolonged QT, and non effect of Ativan 2 mg IV that was given on the order of Dr. Ugalde. Eugene Mccall ordered an additional Benadryl 50 mg IV, Ativan 2 mg IV, and hold the patients morning order of Zyprexa. Dr. Ugalde was then advised and he concurs with Cal's order. In addition, Dr Ugalde ordered Magnesium 2 mg IV as a safety measure as patients QT is prolonged. Dr. Allen was also advised that patients heart rate escelates to the 145 jaime range upon awakening. A litre of Nacl was ordered and given as a bolus.
--- NOTE | 2021-06-06 09:24 | NUR ---
PACKET FAXED TO [facility]
--- NOTE | 2021-06-06 12:22 | NUR ---
Patient sleeps quietly, mid fowlers position. Patient has repositioned herself. NSR without ectopy.
--- NOTE | 2021-06-06 14:00 | NUR ---
A repeat 12 lead was done. the QT Interval is now 365. Dr. Ugalde reviewed 12 Lead.
--- NOTE | 2021-06-06 16:32 | NUR ---
Patient continues to sleep quietly, no distress noted. Patient was checked for incontency, none noted.
--- NOTE | 2021-06-06 19:07 | NUR ---
pt is resting, rr even and unlabored. quality assurance monitor final is nsr with no ectopy.
--- NOTE | 2021-06-06 19:20 | NUR ---
pt continues to sleep. pt awoke briefly for hs meds and then fell right back asleep.
--- NOTE | 2021-06-06 21:27 | NUR ---
pt continues to sleep, rr unlabored at 12 rpm. pt's rhythm is nsr with no ectopy.
[2021-06-06] MEDS ORDERED: LORazepam 1 MG tablet PO ONE (23:05)
--- NOTE | 2021-06-06 23:06 | NUR ---
pt is awake, confused, disoriented. Pt is able to eat some food with assistance. pt took oral ativan ordered by patricia.
--- NOTE | 2021-06-06 23:50 | NUR ---
pt was able to amubulate to restroom with standby assist by tech. pt voided in toilet independently.
--- NOTE | 2021-06-07 00:48 | NUR ---
pt is now sleeping, rr unlabored, no s/s of distress noted.
--- NOTE | 2021-06-07 03:21 | NUR ---
pt is sleeping, rr unlabored.
--- NOTE | 2021-06-07 05:21 | NUR ---
pt continues to sleep, rr unlabored.
--- NOTE | 2021-06-07 05:41 | NUR ---
pt is awake, psychotic, confused. pt is mumbling, attempting to pull out iv and crawl out of bed. pt is difficult to redirect.
[2021-06-07] MEDS: OLANZapine 5mg rapidly disint. tablet PO SCH ×2 (07:08→19:08)
[2021-06-07] MEDS: methadone 10mg tablet PO SCH (07:46)
--- NOTE | 2021-06-07 08:00 | NUR ---
pt is confused, refused methadone.
--- NOTE | 2021-06-07 08:09 | NUR ---
pt is awake and eating with assistance from tech. pt is unable to understand simple commands, hides under her sheets and touches herself innappropriately.
[2021-06-07] MEDS ORDERED: LORazepam 1 MG tablet PO ONE ×2 (08:35→20:45)
--- NOTE | 2021-06-07 09:30 | NUR ---
pt is sitting up in bed mumbling. pt will occasionally lay on her back with her legs up in the air.
--- NOTE | 2021-06-07 09:33 | NUR ---
pt up to use the restroom. pt ambulates with assistance from tech. pt refuses to open eyes when walking.
--- NOTE | 2021-06-07 10:18 | NUR ---
pt requires constant supervision, pt is unsafe. pt will stand up on her bed or try to take her clothes off.
--- NOTE | 2021-06-07 12:04 | NUR ---
pt is sleeping, rr unlabored.
--- NOTE | 2021-06-07 13:21 | NUR ---
pt is awake and restless. pt attempts to climb out of bed but is unstable on her feet. pt ambulated to restroom with tech assisting.
--- NOTE | 2021-06-07 14:57 | NUR ---
RECEIVED CALL FROM DENISE [phone]. IF PLACED COULD WE SEND METHADONE WITH HER TO FACILITY. CALLED [facility] , THEY ONLY HAVE ONE DOSE LEFT. THEN CALLED [facility] [phone], IF THEY CAN PROVIDE METHADONE. LEFT MESSAGE WITH ANSWERING SERVICE, WAITING FOR CALL BACK.
--- NOTE | 2021-06-07 19:00 | NUR ---
Client sitting quietly in her bed. Client is aware she is being transferred in the am. Speech vol is low, and pace is slow. Flat affect. Denies pain or any other complaints. NA reports client has had 3 pitchers of ice water. Reports she "hears voices sometimes". Clients called and is aware of transfer.
[2021-06-07] MEDS ORDERED: OLANZapine 5mg rapidly disint. tablet PO ONE (20:45)
[2021-06-07] MEDS ORDERED: diphenhydrAMINE 25mg capsule PO ONE (20:45)
[2021-06-07] MEDS ORDERED: olanzapine 10mg tablet PO ONE (21:00)
[2021-06-07] MEDS: olanzapine 10mg tablet PO SCH (21:04)
--- NOTE | 2021-06-07 21:30 | NUR ---
Client has been awake and mumbling. Responding to [facility]. Client reaches for things that are not there. Client repeatedly attempted to climb over bed railing. She climbed onto the bedside table and attempted to stand up. This RN and GHAZALA Andre prevented client from falling and repeatedly redirected her to bed. Clients gait is unsteady at this time. Client then threw food tray at GHAZALA Andre, agitation increased. Client threatened to "kill" GHAZALA Andre. Clients speech and behavior disorganized. Attempts to reorient and verbally de-escalate were unsuccessful. Orders for 10 mg Zyprexa Tab PO, 1 mg Ativan Tab PO, and 50 mg Diphenhydramine Cap PO were given. Client accepted medication.
--- NOTE | 2021-06-07 23:30 | NUR ---
Client is sleeping on right side. HOB slightly elevated. Resp even and unlabored. Clients spouse called earlier in the evening while client was asleep. Client was informed when she woke up and stated, "Tell him I love him." No s/s of discomfort.
--- NOTE | 2021-06-08 00:55 | NUR ---
Client is resting on right side. Resp even.
--- NOTE | 2021-06-08 04:59 | NUR ---
Client has been sleeping. Awake once at 04:00 and went back to sleep. Resp even.
[2021-06-08] MEDS ORDERED: LORazepam 1 MG tablet PO ONE ×3 (06:00→14:00)
--- NOTE | 2021-06-08 07:28 | NUR ---
Patient continues to require constant redirection. Pt will lay in bed then get back up. Pt in low gant's position at this time, respirations even and unlabored.
--- NOTE | 2021-06-08 07:55 | NUR ---
LIZZY Coreas at [facility] office. Otilia is considering taking pt as long as the patient has a 7-day supply of her methadone. [employer] spoke with Eugene the director for [facility] treatment program. Per Eugene their policy is only to release medication to PATIENT ONLY. [employer] explained pt was on a legal 5150 hold and unable to pick meds up herself. will not be allowed to fiber picker. [employer] suggested [facility] employee to fiber picker, if possible. Eugene laughed and said he would have to make "a couple of phone calls." [employer] spoke again with Lyudmila at [facility], she will have to consult with her team to see if this is allowed.
[2021-06-08] MEDS: olanzapine 10mg tablet PO SCH (08:00)
[2021-06-08] MEDS ORDERED: OLANZapine 2.5MG tablet PO SCH (08:00)
[2021-06-08] MEDS: methadone 10mg tablet PO SCH (08:45)
--- NOTE | 2021-06-08 09:56 | NUR ---
Pt was just up to the bathroom, requiring redirection or she will wander aimlessly. Pt appears to be responding to internal stimuli as she is looking into the air and making bizarre movements with her arm as if swatting at someting that isn't there.
[2021-06-08] MEDS ORDERED: chlordiazePOXIDE 25mg capsule PO ONE (10:30)
--- NOTE | 2021-06-08 11:36 | NUR ---
T/C from Radha at [facility]. Psychiatric IP - gave current status and update for patient.
--- NOTE | 2021-06-08 12:02 | NUR ---
Jese wise in ED - 06/08/21 at 1216 by STEVE Patient up to the bathroom ambulating with FWW. Gait is steady.
--- NOTE | 2021-06-08 12:16 | NUR ---
Patient resting comfortably in low gant's position, respirations even and unlabored.
[2021-06-08] MEDS ORDERED: diphenhydrAMINE 25mg capsule PO ONE (14:30)
[2021-06-08] MEDS ORDERED: OLANZapine 5mg rapidly disint. tablet PO ONE (14:30)
--- NOTE | 2021-06-08 14:40 | NUR ---
Pt was accepted to [facility]. It was requested pt have her medication prior to coming in, as pt has been disorganized and impulsive. Pt was administered Ativan 1 mg at 1350. Pt remained in bed and then suddenly jumped up and began talking nonsensically. Received order for Benadryl 25mg and Zyprexa 5mg. Administered PO without issue.
--- NOTE | 2021-06-08 14:59 | NUR ---
DISCHARGE NOTE: Patient left unit at 1445. Pt was transferred to [facility]. Pt left with [facility] local bulk driver. Original 5150 was given to local bulk driver and all pt personal belongings. Pt was escorted out in wheelchair for safety reasons and escorted by security. Pt continues to be disorganized and making bizarre movements.
[2021-06-08 15:02] VITALS: BP 129/88
== END 2021-06-08 15:10 ==
LOC: ER 15:13
DX: F29 Unspecified psychosis not due to a substance or known physiological condition (principal); Z20.822 Contact with and (suspected) exposure to COVID-19; F32.9 Major depressive disorder, single episode, unspecified; Z98.891 History of uterine scar from previous surgery; Z79.899 Other long term (current) drug therapy
CPT/HCPCS: 36415; 80053; 80305; 80320; 81001; 81025; 83735; 84439; 84443; 85025; 87635; 93005; 96361; 96372; 96374; 96375; 96376; 99285; C9803; J1200; J1630; J2060; J3475; J7030

== ENCOUNTER 2021-08-04 23:29 | Emergency (ER) | payer MEDICAID ==
[~2021-08-04] VITALS: Ht 165.1 cm; Wt 63.6 kg
[~2021-08-04 23:29] MED LIST changes: -NICO-907 BC; -OLAN10TA73 PO
[2021-08-04] MEDS ORDERED: LORazepam 2 mg/ml vial IM ONE (23:35)
[2021-08-04] MEDS ORDERED: diphenhydrAMINE 50 mg/ml inj IM ONE (23:35)
[2021-08-04] MEDS ORDERED: haloperidol lactate 5mg/ml inj IM ONE (23:35)
--- NOTE | 2021-08-04 23:55 | NUR ---
PT WAS SINGING LOUDLY, ACTING IRRATIC, DANCING AROUND ROOM AND HOLDING HER BABY DOLL. DR. RABAGO TO ORDER MEDICATIONS FOR PT
--- NOTE | 2021-08-05 01:00 | NUR ---
PT NOW RESTING IN BED, EVEN UNLABORED RESPIRATIONS WITH GOOD CHEST RISE AND FALL. PT HOLDING BABY.
[2021-08-05 01:34] LABS: BASOPHILS % (AUTO) 0.7 % (0-1); EOSINOPHILS # (AUTO) 0.1 X10'3 (0-0.9); EOSINOPHILS % (AUTO) 1.5 % (0-6); HEMATOCRIT 37.3 % (35.0-45.0); HEMOGLOBIN 13.1 g/dl (12.0-16.0); LYMPHOCYTES # (AUTO) 1.6 X10'3 (1.1-4.8); LYMPHOCYTES % (AUTO) 23.1 % (21-51); MEAN CORPUSCULAR HEMOGLOBIN 31.4 PG (27.0-31.0); MEAN CORPUSCULAR VOLUME 89.7 FL (78-98); MONOCYTES # (AUTO) 0.8 X10'3 (0-0.9); MONOCYTES % (AUTO) 11.1 % (2-12); NEUTROPHILS # (AUTO) 4.4 X10'3 (1.8-7.7); NEUTROPHILS % (AUTO) 63.6 % (42-75); PLATELET COUNT 343 X10'3 (140-440); RED BLOOD COUNT 4.16 X10'6 (4.20-5.60); RED CELL DISTRIBUTION WIDTH 13.8 % (11.5-14.5); WHITE BLOOD COUNT 6.9 X10'3 (4.5-11.0)
[2021-08-05 01:53] LABS: ALANINE AMINOTRANSFERASE 21 U/L (12-78); ALBUMIN 3.5 G/DL (3.4-5.0); ALBUMIN/GLOBULIN RATIO 1.1 (1.1-1.5); ALKALINE PHOSPHATASE 60 IU/L (46-116); ANION GAP 7 (8-16); ASPARTATE AMINO TRANSFERASE 15 U/L (10-37); BILIRUBIN,TOTAL 1.1 MG/DL (0.1-1.0); BLOOD UREA NITROGEN 9 MG/DL (7-18); BUN/CREATININE RATIO 12.3 (6.6-38.0); CALCIUM 8.6 MG/DL (8.5-10.1); CHLORIDE 104 MMOL/L (99-107); CREATININE 0.73 MG/DL (0.40-0.90); ETHANOL < 0.010 GM/DL (0.0-0.010); GLUCOSE 110 MG/DL (70-104); POTASSIUM 3.5 MMOL/L (3.5-5.1); SODIUM 140 MMOL/L (135-145); TOTAL CARBON DIOXIDE 28.8 MMOL/L (24-32); TOTAL PROTEIN 6.7 G/DL (6.4-8.2); eGFR 86 ML/MIN
--- NOTE | 2021-08-05 02:39 | NUR ---
PT BELLAANCE, ANDREW CASTANEDA, CONTACTED AND PROVIDED SOME INFORMATION REGARDING HER PROGRESSION INTO HER CURRENT STATE. PT ONSET TUESDAY THE AND RAPIDLY PROGRESSED TODAY. PT HAS A HX OF HEROIN AND METHADONE USE, BUT HAS NOT USED FOR MONTHS. PT WAS THREATENING SELF-HARM WITH SISSORS AT HOME. PT HAD A STAY AT [facility] FOR PSYCHOSIS WITHIN THE LAST FEW MONTHS. ANDREW IS THE POC FOR PT: [phone].
--- NOTE | 2021-08-05 10:00 | NUR ---
Pt being placed in bed 26 from ED bed 16. Pt being orientated to environment.
[2021-08-05 11:00] LABS: CLARITY,URINE CLOUDY (Clear); COLOR,URINE YELLOW (Yellow); GLUCOSE, URINE NEGATIVE (Neg); KETONES,URINE TRACE mg/dl (Neg); LEUKOCYTE ESTERASE ,URINE SMALL (Neg); NITRITES, URINE NEGATIVE (Neg); OCCULT BLOOD,URINE NEGATIVE (Neg); PROTEIN,URINE NEGATIVE (Neg); UROBILINOGEN,URINE 0.2 E.U/dL (0.2-1.0)
[2021-08-05 11:01] LABS: URINE HCG NEGATIVE (NEG)
[2021-08-05 11:02] LABS: UA COLLECTION TYPE CLN CATCH MIDSTREAM
[2021-08-05 11:07] LABS: MUCUS STRANDS MANY /LPF (Neg); SQUAMOUS EPITHELIAL CELL,UR MANY /LPF (FEW)
[2021-08-05 11:08] LABS: TRANSITIONAL EPI CELLS,URINE MODERATE /HPF
[2021-08-05 11:11] LABS: BACTERIA,URINE 1+ /HPF (Neg); RBC,URINE 0-2 /HPF (0-2)
[2021-08-05 11:13] LABS: URINE AMPHETAMINE SCREEN NEGATIVE (Neg); URINE BARBITUATE SCREEN NEGATIVE (Neg); URINE BENZODIAZEPINES SCREEN NEGATIVE (Neg); URINE CANNABINOID SCREEN NEGATIVE (Neg); URINE COCAINE SCREEN NEGATIVE (Neg); URINE METHADONE SCREEN NEGATIVE (Neg); URINE OPIATE SCREEN NEGATIVE (Neg); URINE PHENCYCLIDINE SCREEN NEGATIVE (Neg)
--- NOTE | 2021-08-05 11:15 | NUR ---
Pt given snacks per pt request and pt now sitting quietly on bed.
--- NOTE | 2021-08-05 13:54 | NUR ---
pt redirected to bed .pt is redirectable .
--- NOTE | 2021-08-05 13:56 | NUR ---
pt back to nurses station.
[2021-08-05] MEDS ORDERED: OLANZapine **IM** 10 mg inj. IM ONE (14:40)
--- NOTE | 2021-08-05 14:45 | NUR ---
Pt keeps walking into other pt areas and staring at pts and staff. Pt at one point tried to block another pt from entering the bathroom. Pt redirected back to bed several times but pt unable to keep herself from going back to other rooms. Pt had been making random statements like "yah, they're proving their point", and "I heard that" when no one was talking. MD Kilpatrick notified of pt behavior and received order for Zyprexa.
[2021-08-05] MEDS ORDERED: LORazepam 2 mg/ml vial IM ONE (15:35)
--- NOTE | 2021-08-05 15:45 | NUR ---
Pt remains restless and still requiring frequent redirection back to personal area. Reported pt status to MD Finesse MD placing Ativan order.
--- NOTE | 2021-08-05 18:40 | NUR ---
Pt is asleep at shift change. Easily woken, pt is cooperative but minimal in speech.
--- NOTE | 2021-08-05 19:30 | NUR ---
Pt up to use the restroom. Requests warm blanket which is given to her.
--- NOTE | 2021-08-05 22:12 | NUR ---
[facility] called, nurse to nurse given.
--- NOTE | 2021-08-05 23:45 | NUR ---
Pt sleeping on R side, breaths even and unlabored
--- NOTE | 2021-08-06 01:00 | NUR ---
Pt wakes up and uses the restroom. She approaches nursing station and asks where she is. RN rijoelforces reality with pt.
--- NOTE | 2021-08-06 01:45 | NUR ---
Pt has a paranoid affect, she asks for a mask which is given to her and comes up to the nursing station every 5 minutes saying nonsensical sentances while intensely staring at staff. Pt is given a snack which she eats
--- NOTE | 2021-08-06 01:55 | NUR ---
Pt is staring at male staff members suspicialously, she asks RN if there is any medication she could get. RN consults Dr. Quijano, 1 mg ativan PO Q4h for anxiety/ aggitation ordered.
[2021-08-06] MEDS: LORazepam 1 MG tablet PO PRN ×2 (02:13→09:57)
--- NOTE | 2021-08-06 02:18 | NUR ---
Pt given ativan 1 mg PO, which she took without issue. Pt given a book to look at.
--- NOTE | 2021-08-06 03:00 | NUR ---
Pt lays down and curls up in blankets, she is able to fall asleep.
--- NOTE | 2021-08-06 04:00 | NUR ---
Pt asleep on L side, respirations even and unlabored
--- NOTE | 2021-08-06 05:51 | NUR ---
Pt up to the bathroom. She sits up in bed quietly looking aroud.
[2021-08-06 06:13] VITALS: BP 143/90
--- NOTE | 2021-08-06 06:36 | NUR ---
Patient up and down to the nurses station. No distress observed. Continue to monitor.
--- NOTE | 2021-08-06 08:32 | NUR ---
Patient came up to the nurses station and spit out some of her breakfast food on the nurses station counter. Then she put the food back in her mouth and spit it out in the trashcan. Patient has flat affect. Continue ot monitor.
--- NOTE | 2021-08-06 08:59 | NUR ---
Patient to the nurses station and told RN "Don't believe everything you hear. Don't believe everything you smell unless you can really smell it." Patient then went back to her bed. Continue to monitor.
[2021-08-06] MEDS ORDERED: diphenhydrAMINE 25mg capsule PO ONE (09:40)
[2021-08-06] MEDS ORDERED: OLANZapine 5mg rapidly disint. tablet PO ONE (09:40)
--- NOTE | 2021-08-06 10:02 | NUR ---
Patient up to the sitter for pediatric patient. She keeps coming toward him and is enamored with him. Patient again redirected to her room. Continue to monitor
--- NOTE | 2021-08-06 10:27 | NUR ---
Patient given oral meds. Patient reclining in bed. No distress observed. Continue to monitor.
--- NOTE | 2021-08-06 12:08 | NUR ---
Patient eating lunch. Patient does keep coming to the nurses station. No distress observed. Continue to monitor.
--- NOTE | 2021-08-06 14:22 | NUR ---
Patient up and down to nurses station and then back to her bed. RN gave patient a toothbrush and tooth paste as asked by patient. Patient did not go brush her teeth. Continue to monitor.
== END 2021-08-06 15:16 ==
LOC: ER 23:30
DX: F23 Brief psychotic disorder (principal); Z20.822 Contact with and (suspected) exposure to COVID-19; R45.851 Suicidal ideations; F32.9 Major depressive disorder, single episode, unspecified; F11.90 Opioid use, unspecified, uncomplicated; Z98.891 History of uterine scar from previous surgery; Z79.899 Other long term (current) drug therapy
CPT/HCPCS: 36415; 80053; 80305; 80320; 81001; 81025; 84439; 84443; 85025; 87635; 96372; 99285; C9803; J1200; J1630; J2060; J3490; Q0163